=== PATIENT | male | born 1990 | race American Indian/Alaskan Native ===

== ENCOUNTER 2018-11-04 16:37 | Emergency (ER) | payer SELFPAY ==
[2018-11-04 16:57] VITALS: BP 155/90
--- NOTE | 2018-11-04 16:58 | Event Note ---
ED Screening Note Date of service: 11/04/18 Time: 16:54 ED Screening Note: This is a 28 y.o. M. that presents to the ER with swelling and pain to left 2nd PIP down x 2 days. This initial assessment/diagnostic orders/clinical plan/treatment(s) is/are subject to change based on patients health status, clinical progression and re- assessment by fellow clinical providers in the ED. Further treatment and workup at subsequent clinical providers discretion. Patient/guardian urged not to elope from the ED as their condition may be serious if not clinically assessed and managed. Initial orders include: XR left fingers
--- NOTE | 2018-11-04 17:36 | XRay Report ---
RIGHT INDEX FINGER 3 VIEWS INDICATION / CLINICAL INFORMATION: Fall with injury to the left index finger COMPARISON: None available. FINDINGS: BONES / JOINT(S): There is a subtle lucency in the proximal aspect of the middle phalanx seen on all 3 views. This may represent a nondisplaced fracture. No other fractures are seen. No dislocation is s een. No significant arthritis. SOFT TISSUES: There is soft tissue swelling in the index finger ADDITIONAL FINDINGS: None. Signer Name: Issa Hall MD Signed: 11/04/2018 5:32 PM Workstation Name: [id number]
[2018-11-04] MEDS ORDERED: IBUPROFEN 800 MG TAB PO ONE (18:00)
--- NOTE | 2018-11-04 18:33 | Emergency Department Report ---
ED Upper Extremity Inj HPI - General Chief Complaint: Extremity Injury, Upper Stated Complaint: HAND PAIN Time Seen by Provider: 11/04/18 16:54 Source: patient Mode of arrival: Ambulatory Limitations: No Limitations - History of Present Illness Initial Comments: This is a 28-year-old male nontoxic, well nourished in appearance, no acute signs of distress presents to the ED with c/o of right index finger pain 3 days. Patient stated that he believes injured it while playing with kids. Patient denies any other trauma. Patient denies any numbness, tingling, fever, chills, nausea, vomiting, chest pain, shortness of breath, headache, stiff neck. Patient denies any joint swelling or joint redness. Patient stated has some decreased range of motion. Patient denies any allergies or significant past medical history. MD Complaint: Injury to:: right, finger -: days(s) (3) Other Extremity Injury: Fingers: Right Other Injuries: none Severity scale (0 -10): 8 Improves With: immobilization Worsens With: movement of extremity Associated Symptoms: denies other symptoms. denies: weakness, numbness, neck pain, suspects foreign body, nausea/vomiting, heard/felt popping sensat - Related Data Previous Rx's Medication Instructions Recorded Last Taken Type Acetaminophen/Codeine [Tylenol 1 tab PO Q6H PRN #12 tab 11/04/18 Unknown Rx /Codeine # 3 tab] Allergies Allergy/AdvReac Type Severity Reaction Status Date / Time No Known Allergies Allergy Verified 11/04/18 16:56 ED Review of Systems ROS: Stated complaint: HAND PAIN Other details as noted in HPI Constitutional: denies: chills, fever Eyes: denies: eye pain, eye discharge, vision change ENT: denies: ear pain, throat pain Respiratory: denies: cough, shortness of breath, wheezing Cardiovascular: denies: chest pain, palpitations Endocrine: no symptoms reported Gastrointestinal: denies: abdominal pain, nausea, diarrhea Genitourinary: denies: urgency, dysuria Musculoskeletal: denies: back pain, joint swelling, arthralgia Skin: denies: rash, lesions Neurological: denies: headache, weakness, paresthesias Psychiatric: denies: anxiety, depression Hematological/Lymphatic: denies: easy bleeding, easy bruising ED Past Medical Hx - Past Medical History Previous Medical History?: No - Surgical History Past Surgical History?: No - Social History Smoking Status: Never Smoker Substance Use Type: None - Medications Home Medications: Home Medications Medication Instructions Recorded Confirmed Last Taken Type Acetaminophen/Codeine [Tylenol 1 tab PO Q6H PRN #12 tab 11/04/18 Unknown Rx /Codeine # 3 tab] ED Physical Exam - General Limitations: No Limitations General appearance: alert, in no apparent distress - Head Head exam: Present: atraumatic, normocephalic - Extremities Exam Extremities exam: Present: normal inspection, full ROM, tenderness, normal capillary refill. Absent: joint swelling - Expanded Upper Extremity Exam Right Forearm Wrist exam: Present: normal inspection, full ROM. Absent: tenderness, swelling, abrasion, laceration, ecchymosis, deformity, crepidus, dislocation, erythema, tenderness over anatomical snuff box, pain with axial thumb loading Hand Wrist exam: Present: normal inspection, full ROM, tenderness, swelling. Absent: abrasion, laceration, ecchymosis, deformity, crepidus, dislocation, erythema, amputation, nail avulsion, subungual hematoma Vascular: Present: vascular compromise, normal capillary refill - Back Exam Back exam: Present: normal inspection, full ROM - Neurological Exam Neurological exam: Present: alert, oriented X3, normal gait - Psychiatric Psychiatric exam: Present: normal affect, normal mood - Skin Skin exam: Present: warm, dry, intact, normal color. Absent: rash ED Course Vital Signs 11/04/18 11/04/18 16:55 18:28 Temperature 98.2 F Pulse Rate 78 Respiratory 16 17 Rate Blood Pressure 155/90 O2 Sat by Pulse 100 Oximetry - Reevaluation(s) Reevaluation #1: 11/04/18 18:30 Patient is speaking in full sentences with no signs of distress noted. ED Medical Decision Making - Medical Decision Making This is a 28-year-old male that presents with right index finger fracture. Patient is stable and was examined by me.X-ray has been obtained and dictated by the radiologist. Patient is notified of the x-ray report with noted by the patient. Patient does have normal gait with no tenderness and no joint swelling. No ecchymosis. no joint redness or swelling. Not warm to touch. No signs of cellulites present. Patient received a frog metal splint. Post splint assessment: neurovasular intact; normal cap refill <2 second; normal sensation; denies decreaed sensation; normal ROM of digits. Patient was instructed to RICE therapy. Patient received Motrin for pain. Patient is discharged with Motrin. At time of discharge, the patient does not seem toxic or ill in appearance. No acute signs of distress noted. Patient agrees to discharge treatment plan of care. No further questions noted by the patient. Critical care attestation.: If time is entered above; I have spent that time in minutes in the direct care of this critically ill patient, excluding procedure time. ED Disposition Clinical Impression: Finger fracture, right Qualifiers: Encounter type: initial encounter Finger: index finger Fracture type: closed Phalanx: unspecified phalanx Fracture alignment: nondisplaced Qualified Code(s): S62.600A - Fracture of unspecified phalanx of right index finger, initial encounter for closed fracture Disposition: - TO HOME OR SELFCARE Is pt being admited?: No Does the pt Need Aspirin: No Condition: Stable Instructions: RICE Therapy (ED), Finger Fracture (ED), Acetaminophen/Codeine (By mouth) Additional Instructions: Follow-up with a orthopedic doctor in 3-5 days or if symptoms worsen and continue return to emergency room as soon as possible. Do not operate any machinery while taking Tylenol with codeine as this may cause drowsiness. Prescriptions: Acetaminophen/Codeine [Tylenol /Codeine # 3 tab] 1 tab PO Q6H PRN #12 tab PRN Reason: Pain , Severe (7-10) Referrals: PRIMARY [facility] [Referring] - 3-5 Days ENRIQUE FARRAR MD [Staff Physician] - 3-5 Days [facility] [Outside] - 3-5 Days Forms: Work/School Release Form(ED)
== END 2018-11-04 18:56 | disposition home or self-care (01) ==
LOC: ED 16:37
DX: S62.600A Fracture of unspecified phalanx of right index finger, initial encounter for closed fracture (principal); X58.XXXA Exposure to other specified factors, initial encounter; Y93.89 Activity, other specified; Y92.89 Other specified places as the place of occurrence of the external cause; Y99.8 Other external cause status

== ENCOUNTER 2021-11-02 15:29 | Emergency (ER) | payer SELFPAY | END 2021-11-02 16:35 | disposition left against medical advice (07) | LOC: ED 15:29 | DX: Z04.1 Encounter for examination and observation following transport accident (principal); Z53.21 Procedure and treatment not carried out due to patient leaving prior to being seen by health care provider; V87.7XXA Person injured in collision between other specified motor vehicles (traffic), initial encounter; Y93.89 Activity, other specified; Y92.488 Other paved roadways as the place of occurrence of the external cause; Y99.8 Other external cause status ==

== ENCOUNTER 2021-11-02 22:59 | Emergency (ER) | payer SELFPAY ==
[2021-11-02 23:06] VITALS: BP 139/88
== END 2021-11-03 10:51 | disposition left against medical advice (07) ==
LOC: ED 22:59
DX: Z00.00 Encounter for general adult medical examination without abnormal findings (principal); Z53.21 Procedure and treatment not carried out due to patient leaving prior to being seen by health care provider; W22.8XXA Striking against or struck by other objects, initial encounter; Y93.89 Activity, other specified; Y92.89 Other specified places as the place of occurrence of the external cause; Y99.8 Other external cause status